=== PATIENT | male | born 1960 | race Caucasian/White ===

== ENCOUNTER 2016-08-06 09:40 | Emergency (ER) | payer SELFPAY ==
--- NOTE | 2016-08-12 14:38 | ER ---
ADMIT: 08/06/2016 RM/LOC: ER [facility] MR#: [id number] [address] [facility] [address] [place], [place] [address] ARLEEN CHERRY [address] [facility] [address] [place] [address] Emergency Room Report SEX: M AGE: 56 : 1960 DATE: 08/06/2016 ADDENDUM: CHIEF COMPLAINT: Cough. HISTORY OF PRESENT ILLNESS: This is a 56-year-old male who had a cough intermittently for about 4 months. He was tested for influenza yesterday it was negative, so they placed him on Augmentin. Today, he comes to the ER because he just notices his blood pressure was very elevated, it was above 200 systolic. He was very nervous about this but then he realized once he got here that he forgot to take his hypertension medications last night, which is verapamil 80 mg. He took clonidine and verapamil this morning and improved, and he actually feels a lot better now that he is here. Blood pressure on arrival was 173/91. At this time, it is 158/86. Again, he feels better. He does not have a headache. He does not have any chest pain, does have a low- grade fever. I think it is due to his bronchitis. I told to him to continue the Augmentin, work on quit smoking, push fluids. I did tell mom that he may need CT of his chest if he is not improving since it sounds like, this cough has been there intermittently for the last 4 months. CLINICAL IMPRESSION: Bronchitis. DISPOSITION: Stable at discharge and improved. We will follow up as needed. EDGAR Null / Mitch Martinez MD / catherine JOB #: [id number] CC: Mitch Martinez MD, Attending Physician
== END 2016-08-06 11:08 | disposition home or self-care (01) ==
LOC: ER 09:40
DX: J40 Bronchitis, not specified as acute or chronic (principal); I10 Essential (primary) hypertension; F17.210 Nicotine dependence, cigarettes, uncomplicated; Z79.899 Other long term (current) drug therapy

== ENCOUNTER → 2016-09-01 | Outpatient (CLI) | payer SELFPAY | END | disposition home or self-care (01) | LOC: RAD.S 14:30 | DX: J20.9 Acute bronchitis, unspecified (principal); R91.8 Other nonspecific abnormal finding of lung field ==

== ENCOUNTER → 2016-09-08 | Outpatient (CLI) | payer SELFPAY ==
--- NOTE | ~2016-09-08 | ECH ---
Transthoracic Echocardiography Report (TTE) Demographics Patient Name ARLEEN CHERRY SR Date of Study 09/08/2016 Patient Number [id number] Visit Number [id number] Date of 1960 Room Number Accession Number [id number] Gender Male Age 56 year(s) Referring Glen Gusman Aircraft Instrument Repairer Do Resendiz Physician [employer]ODUCTION [employer] MECHANIC RDCS Physician Interpreting Margareth [place] [employer] Physician MD Supervising Ordering Physician Glen Gusman MD/MLP PRODUCTION LINE MECHANIC Nurse Stress Assistance Representative Conclusions Summary Technically good exam. The estimated left ventricular ejection fraction is 60%. No significant valvular abnormalities. Normal study. Procedure Type of Study TTE procedure:Echo Complete SF. Procedure Date Date: 09/08/2016 Start: 01:34 PM Technical Quality: Good visualization Indications:Hypertension. Appropriate Use Criteria: 9 Height: 70 inches Weight: 220 pounds BSA: 2.17 m Rhythm: Sinus bradycardia HR: 55 bpm BP: 159/91 mmHg M-Mode/2D Measurements LV Diastolic Dimension: 5 cm LV Systolic Dimension: 3.34 cm LV Septum Diastolic: 0.83 cm LV PW Diastolic: 0.85 cm AO Root Dimension: 3.04 cm Cardiac Output: 3.83 l/min LA Dimension: 3.71 cm Cardiac Index: 1.76 l/min*m RV Diastolic Dimension: 2.88 cm LA volume index: 30 ml/m LVOT: 2.01 cm LVOT VTI: 21.98 cm RV Base: 3 cm LV Stroke volume: 69.71 ml RV Mid: 2 cm LV Stroke volume index: 32.12 ml/m TAPSE: 3 cm TDI-S': 13 cm/s Doppler Measurements AV Mean Gradient: 4.16 mmHg MV Peak E-Wave: 0.82 m/s LVOT Peak Velocity: 1.13 m/s MV Peak A-Wave: 0.45 m/s AV Area (Continuity):2.68 cm MV P1/2t: 53.5 msec MV Deceleration Time: 178.2 msec E' Septal Velocity: 0.11 m/s MV Area (PHT): 4.11 cm E' Lateral Velocity: 0.14 m/s PV Peak Velocity: 0.89 m/s PV Peak Gradient: 3.18 mmHg RA Area: 15.09 cm A' Lateral Velocity: 0.09 m/s Findings Left Ventricle Normal left ventricle size and function. Diastolic assessment reveals normal relaxation. Right Ventricle Normal right ventricle structure and function. Left Atrium Normal left atrial size. Right Atrium Normal right atrial size. Mitral Valve Normal mitral valve structure and function. Trivial mitral regurgitation by color Doppler. Aortic Valve Normal aortic valve structure and function. Tricuspid Valve Normal tricuspid valve structure and function. Trivial tricuspid regurgitation by color Doppler. Insufficient jet to calculate pulmonary pressures. Pulmonic Valve Normal pulmonic valve structure and function. Pericardial Effusion No evidence of pericardial effusion. Miscellaneous Visualized portions of the aortic root and ascending aorta appear normal in size. Pleural Effusion No evidence of pleural effusion. Contractility Score LV regional wall motion:(0-Non visualized 1-Normal 2-Hypokinesis 3-Akinesis 4-Dyskinesis 5-Aneurysm) Signature
== END | disposition home or self-care (01) ==
LOC: RAD.S 09-01 14:20 → CARD 13:00
DX: J20.9 Acute bronchitis, unspecified (principal); I10 Essential (primary) hypertension

== ENCOUNTER → 2016-11-21 | Outpatient (CLI) | payer SELFPAY | END | disposition home or self-care (01) | LOC: RAD.S 08:54 | DX: R55 Syncope and collapse (principal); R93.0 Abnormal findings on diagnostic imaging of skull and head, not elsewhere classified ==